=== PATIENT | male | born 1970 | race African-American/Black ===

== ENCOUNTER 2019-03-16 04:11 | Inpatient (IN) | payer MEDICAID, OTHER ==
[~2019-03-16] VITALS: Ht 190.5 cm; Wt 88.5 kg
[~2019-03-16 04:11] MED LIST: HYDR-519; TRAM50TA; VIC
[2019-03-16] MEDS ORDERED: DIAZEPAM 5 MG/ML 2ML CPJ IV ONE (04:45)
[2019-03-16] MEDS ORDERED: MORPHINE SULFATE 4 MG/ML CPJ (NOT FOR IM USE) IV ONE ×2 (05:30→06:30)
[2019-03-16] MEDS ORDERED: ONDANSETRON HCL 4MG/2ML INJ ONE (05:32)
[2019-03-16] MEDS ORDERED: ONDANSETRON HCL 4MG/2ML INJ IV ONE (05:45)
[2019-03-16 08:30] VITALS: BP 121/66
[2019-03-16] MEDS ORDERED: MORPHINE SULFATE 4 MG/ML CPJ (NOT FOR IM USE) IV PRN (09:30)
[2019-03-16] MEDS ORDERED: HYDROCODONE/ACETAMINOPHEN 5/325MG TABLET PO PRN (09:30)
[2019-03-16] MEDS ORDERED: ONDANSETRON HCL 4MG/2ML INJ IV PRN (09:30)
[2019-03-16 12:00] VITALS: BP 122/66
[2019-03-16] MEDS ORDERED: HYDROMORPHONE HCL/PF 2MG/ML CPJ IV NR (13:00)
[2019-03-16] MEDS ORDERED: CARISOPRODOL 350 MG TABLET PO PRN (13:00)
[2019-03-16 14:14] LABS: BASOPHILS % 1.2 % (0.0-2.0); EOSINOPHILS % 1.4 % (0.0-5.0); HEMATOCRIT. 47.4 % (42.0-52.0); HEMOGLOBIN. 16.1 g/dL (14.0-18.0); LYMPHOCYTES % 67.7 % (20.0-50.0); MEAN CORPUSCULAR HEMOGLOBIN 31.5 pg (28.0-32.0); MEAN CORPUSCULAR VOLUME 92.8 fL (80.0-94.0); MEAN PLATELET VOLUME 7.2 fl (7.4-10.4); MONOCYTES % 7.1 % (2.0-8.0); NEUTROPHILS % 22.6 % (40.0-76.0); PLATELET 267 x1000/uL (130-400); RED CELL DISTRIBUTION WIDTH 14.3 % (11.6-14.6)
[2019-03-16 14:27] LABS: CHLORIDE 106 mEq/L (98-107)
[2019-03-16 16:00] VITALS: BP 115/76
[2019-03-16] MEDS ORDERED: INFLUENZA VIRUS VACCINE(AFLURIA) 0.5ML SYR IM ONE (19:30)
[2019-03-16] MEDS: HYDROMORPHONE HCL/PF 2MG/ML CPJ IM PRN (19:43)
[2019-03-16 20:00] VITALS: BP 139/79
[2019-03-17] VITALS: BP 131/80
[2019-03-17] MEDS: HYDROCODONE/ACETAMINOPHEN 5/325MG TABLET PO PRN ×3 (00:13→09:18)
[2019-03-17 04:00] VITALS: BP 141/92
[2019-03-17] MEDS: HYDROMORPHONE HCL/PF 2MG/ML CPJ IM PRN (06:16)
[2019-03-17 08:00] VITALS: BP 141/89
[2019-03-17] MEDS ORDERED: HYDROMORPHONE HCL/PF 2MG/ML CPJ IV PRN (10:45)
[2019-03-17 11:15] VITALS: BP 133/88
== END 2019-03-17 13:30 | disposition left against medical advice (07) | DRG 347 ==
LOC: ER 04:27 → 7WST 06:23 → ENRESERV 07:09 → 6EST 03-17 09:45
PROVIDERS: ADMIT Internal Medicine; ATTEND Internal Medicine
DX: M48.061 Spinal stenosis, lumbar region without neurogenic claudication (principal); E87.1 Hypo-osmolality and hyponatremia; F12.90 Cannabis use, unspecified, uncomplicated
CPT/HCPCS: 36415; 80048; 93970; 96374; 96375; 96376; 97162; 99285; J1170; J2270; J2405

== ENCOUNTER 2019-03-27 07:01 | Emergency (ER) | payer MEDICAID ==
[~2019-03-27] VITALS: Ht 180.3 cm; Wt 87.0 kg
[2019-03-27 09:11] VITALS: BP 141/78
[2019-03-27] MEDS ORDERED: KETOROLAC 60MG/2ML VIAL IM ONE (09:15)
[2019-03-27] MEDS ORDERED: DIAZEPAM 2 MG TABLET PO ONE (09:15)
[2019-03-27] MEDS ORDERED: DIAZEPAM 2 MG TABLET PO NR (09:15)
[2019-03-27] MEDS ORDERED: DEXAMETHASONE 10 MG/ML VIAL IM ONE (09:15)
== END 2019-03-27 09:35 | disposition home or self-care (01) ==
LOC: ER 07:01
DX: M54.41 Lumbago with sciatica, right side (principal); E11.9 Type 2 diabetes mellitus without complications; F12.10 Cannabis abuse, uncomplicated; Z79.899 Other long term (current) drug therapy
CPT/HCPCS: 96372; 99283; J1100; J1885